=== PATIENT | male | born 1980 | race Caucasian/White ===

== ENCOUNTER 2023-10-02 11:59 | Emergency (ER) | payer OTHER, SELFPAY ==
--- NOTE | 2023-10-02 12:01 | ED_ITS ---
HPI - General Adult General Date Seen: 10/02/23 Chief complaint: Skin/Abscess/Foreign Body Stated complaint: Cyst Time Seen by Provider: 10/02/23 12:00 History of Present Illness HPI narrative: 42-year-old generally healthy male who presents to the urgent care with complaints of buttock pain for the past 4 days. Patient noticed an area of redness on the left glute with progressive worsening pain over the past 4 days. No history of pilonidal cysts or abscesses. He has been afebrile but pain is rated 10/10. He cannot sit because of pain in that area. He does not have any pain with defecation. No abdominal pain. No fever chills. No nausea or vomiting. No urinary symptoms. He is not diabetic or immunosuppressed. No history of malignancy. No history of inflammatory bowel disease. Related Data Previous Rx's Medication Instructions Recorded clindamycin HCl 300 mg capsule 300 mg PO Q8H #21 caps 10/02/23 hydrocodone 5 mg-acetaminophen 325 1 - 2 tab PO Q6H PRN pain #10 tabs 10/02/23 mg tablet Allergies Allergy/AdvReac Type Severity Reaction Status Date / Time Penicillins Allergy Verified 10/02/23 12:14 Sulfa (Sulfonamide Allergy Verified 10/02/23 12:14 Antibiotics) PFSH PFS Social History Smoking Status: Current every day smoker What tobacco products do you use: cigarettes Do you use any of these nicotine containing products: None How often do you have a drink containing alcohol: 2-3 times a week How many standard drinks containing alcohol do you have on a typical day: 1 or 2 How often do you have six or more drinks on one occasion: Less than monthly AUDIT-C Alcohol total score: 4 Non-prescribed substance use: marijuana (any form) Exam Narrative: Exam Narrative: Constitutional: Appears well-developed and well-nourished. Alert. Conversant. Non toxic. HENT: Head: Atraumatic. Nose: Nose normal. Mouth/Throat: Oral mucosa is clear and moist. no trismus. Pharynx normal. T onsils symmetric. No tonsillar enlargement, erythema, or exudate. Eyes: Conjunctivae normal. EOM normal. Pupils equal, round, and reactive to light. No scleral icterus. Neck: Normal range of motion. Neck supple. No tracheal deviation present. Cardiovascular: Normal rate, regular rhythm. Pulmonary/Chest: Effort normal. No stridor. No respiratory distress. Abdominal: Soft. No distension. No mass. No tenderness. No rebound. No guarding. Rectal: Performed with female ignition specialist. He does have a swollen erythematous area on his left buttock. It is associated with a 1-2 cm area of pointing absce ss that is located about 1 or 2 cm posterior and lateral to the opening of his anus. This would be concerning for a perirectal abscess verses a somewhat low lying pilonidal abscess. Typically with pilonidal abscess we would expect the abscess to be centered more posterior toward the top into the gluteal cleft. Normal rectal tone. No extension on the right side. Musculoskeletal: RUE: Normal range of motion. No tenderness. No deformity LUE: Normal range of motion. No tenderness. No deformity RLE: Normal range of motion. No edema. No tenderness. No deformity LLE: Normal range of motion. No edema. No tenderness. No deformity Lymph: No cervical adenopathy. Neurological: Alert and oriented to person, place, and time. Normal strength. CN II-VII intact. No sensory deficit. GCS eye subscore is 4. GCS verbal subscore is 5. GCS motor subscore is 6. Normal coordination Skin: Skin is warm and dry. No rash noted. No pallor. Normal capillary refill. Psychiatric: Normal mood. Normal affect. Const: Vital Signs, click to edit/add: Vital Signs - 24 hr 10/02/23 12:03 Pulse Rate [Pulse Oximeter] 92 Respiratory Rate 18 Blood Pressure [Ri ght Upper Arm] 175/108 H Pulse Oximetry 99 Oxygen Delivery Me thod Room Air Course Vital Signs Vital signs: Initial Vital Signs Pulse Rate 92 10/02/23 12:03 Respiratory Rate 18 10/02/23 12:03 Blood Pressure 175/108 H 10/02/23 12:03 Blood Pressure Mean 130 H 10/02/23 12:03 Pulse Oximetry 99 10/02/23 12:03 Oxygen Delivery Method Room Air 10/02/23 12:03 Vital Signs Pulse Rate 92 10/02/23 12:03 Respiratory Rate 18 10/02/23 12:03 Blood Pressure 175/108 H 10/02/23 12:03 Pulse Oximetry 99 10/02/23 12:03 Oxygen Delivery Method Room Air 10/02/23 12:03 Pulse Rate 92 10/02/23 12:03 Respiratory Rate 18 10/02/23 12:03 Blood Pressure 175/108 H 10/02/23 12:03 Pulse Oximetry 99 10/02/23 12:03 Oxygen Delivery Method Room Air 10/02/23 12:03 Medical Decision Making MDM Narrative Medical decision making narrative: This is a generally healthy 42-year-old male presenting to the ER today with a painful swollen lump on his left buttock and left perirectal area that has been there for the past few days, getting gradually worse. Clinical presentation is consistent with an abscess. Differential would include pilonidal abscess or perirectal/perianal abscess. Based on location on concerned about possible perianal. At this point there is no exam or history evidence is just that this is extending deep up into the abdominal cavity or into the pelvic space. No ear pain with defecation, abdominal pain, fever, or other constitutional symptoms. We discussed options including further workup with labs and CT to further delineate the exact extent of the abscess. We also discussed possible primary drainage here without further workup. Ultimately we decided to go ahead with primary drainage. This was performed as noted above. We did have successful drainage of a brownish pus with relief of the patient's pressure and pain. He is clinically nontoxic. There is a small rim of surrounding erythema suggestive of a surrounding cellulitis. Will put the patient on oral antibiotics. At this point I do not think he needs lab workup, CBC, IV antibiotics, or admission. We consulted with General surgery, Dr. Arceo. She agrees that the patient would be appropriate for outpatient follow-up in the surgery clinic. She would advise that if he is not able to get in the clinic by Tuesday that he should remove the packing at home. I reviewed the expected course of the abscess and anticipated drainage from bleeding. Precautions for return to the ER with any unexpected bleeding, unexpected drainage, recurrent swelling, unexpected pain, fever, abdominal pain, or any other concerns. We discussed perirectal care, saw stools, Sitz baths, soaking, and other supportive care. He and his fiancee verbalized their agreement with the plan to follow up outpatient with surgery. Discharge Plan Discharge Clinical Impression: Abscess, perianal Patient Disposition: Home, Self-Care Condition: Stable Instructions: Sitz Bath (DC), Rectal Abscess (ED), Incision and Drainage (ED) Additional Instructions: Please follow-up with the [facility] surgery clinic within 2-4 days. Call [phone] to contact the surgery center to schedule an appointment. Call tomorrow morning to schedule your appointment. To take care of the abscess in the incision, keep your stool soft. Use fiber and stool softeners to keep her stools the consistency of pudding or soft serve ice cream. It may be helpful to apply a small amount of shaving cream to the outside of your rectum before each bowel movement. This will help soothe and protect the open area. After each bowel movement, wash your bottom carefully in the shower or soak your bottom in the tub for 15 minutes. If the packing is not fallen out by Tuesday, you can take the packing out at home while your in the bathtub, or have the surgeons remove it in the clinic. If you have any problems, come back to the ER right away, especially if you have increasing swelling, worsening pain, high fever, unexpected bleeding or drainage from the abscess, or any other problems. Use the antibiotics to help treat the infection surrounding the abscess. Use [id number] pain medications or prescription pain killers if needed. Be cautious with hydrocodone because it can cause constipation, firm stools, can also cause dizziness and drowsiness, and can be addictive. Prescriptions: New hydrocodone-acetaminophen 5-325 mg tablet 1 - 2 tab PO Q6H PRN (Reason: pain) Qty: 10 0RF clindamycin HCl 300 mg capsule 300 mg PO Q8H Qty: 21 0RF Follow Up/Referrals: Provider,Not a Local [Primary Care Provider] - Stand Alone Forms: [facility] Info Instructions Procedures I/D Type: abscess Site: amber-rectal (And left buttock) Pre procedure diagnosis: Perirectal versus pilonidal abscess Verification/time out: correct patient, correct site and correct procedure Rate Supervisor 1, if any: nurse Michelle, for retraction Anesthesia I&D: lidocaine 1% (Creating a ring of anesthesia around the abscess and then injection into the abscess. Good anesthesia was achieved.) and with Epi Amount of anesthesia used (mls): 10 Technique: incised with #11 blade (Creating a 2 cm linear incision. Drainage of brownish/purulent fluid achieved. We probed the wound with a blunt hemostat. No loculations were noted. The packing with quarter-inch plain gauze. No complications noted. No pain.) Packing used?: plain Estimated blood loss (if any): less than 5mls Conclusion: patient tolerated procedure
[2023-10-02 12:03] VITALS: BP 175/108; PULSE 92; RESP 18; O2SAT 99; BMI 35.9
== END 2023-10-02 13:07 | disposition home or self-care (01) ==
PROVIDERS: Emergency Provider Emergency Medicine
DX: K61.0 Anal abscess (principal)
CPT/HCPCS: 10060; 10061; 46050; 99284